=== PATIENT | male | born 1995 | race Caucasian/White ===

== ENCOUNTER 2016-03-23 16:55 | Emergency (ER) | payer OTHER ==
[~2016-03-23] VITALS: Ht 185.4 cm; Wt 90.0 kg
[2016-03-23 16:57] VITALS: BP 126/80; PULSE 114; RESP 20; TEMP 97.7; O2SAT 98
--- NOTE | 2016-03-23 18:27 | PD ---
HPI Chief Complaint: Medical Clearance Time Seen by Provider: 18:00 Travel History International Travel<30 days: No Contact w/Intl Traveler<30days: No Traveled to known affect area: No History of Present Illness HPI 20-year-old male presents to the emergency room for evaluation of nonproductive cough, congestion, sore throat, chills, headache that started yesterday and worsened severely today. Patient has been taking Mucinex and cough drops without significant relief. He called off work and is requesting a work note. Denies chronic medical conditions or daily medications. Girlfriend is sick with similar symptoms. [facility] Social History Tobacco Use: No Allergies-Medications (Allergen,Severity, Reaction): Coded Allergies: No Known Allergies (Unverified , 03/23/16) Reported Meds & Prescriptions Reported Meds & Active Scripts Active No Active Prescriptions or Reported Medications Review of Systems Except as stated in HPI: all other systems reviewed are Neg Physical Exam Narrative GENERAL: Well-nourished, well-developed male in no acute distress. Afebrile. Ambulatory. SKIN: Warm and dry. HEAD: Normocephalic. EYES: No scleral icterus. No injection or drainage. ENT: Mucosa pink and moist. Moderate erythema without edema or exudates. No uvular edema. No uvular, palatal, or tonsillar deviation. Airway patent. Nasal turbinates appear normal without nasal blood, purulent drainage or septal hematoma. EARS: Bilateral pinnae and external canals appear within normal limits. Bilateral tympanic membranes without erythema, dullness or perforation. NECK: Supple, trachea midline. No JVD or lymphadenopathy. CARDIOVASCULAR: Regular rate and rhythm without murmurs, gallops, or rubs. RESPIRATORY: Breath sounds equal bilaterally. No accessory muscle use. No crackles, rales, wheezes, or rhonchi. BACK: Nontender without obvious deformity. No CVA tenderness. Data Data Last Documented VS Vital Signs Date Time Temp Pulse Resp B/P Pulse Ox O2 Delivery O2 Flow Rate FiO2 03/23/16 18:38 98 16 98 Room Air 03/23/16 16:57 97.7 126/80 Orders Influenzae A/B Antigen (03/23/16 18:07) MDM Medical Decision Making Medical Screen Exam Complete: Yes Emergency Medical Condition: Yes Medical Record Reviewed: Yes Differential Diagnosis Influenza versus upper respiratory infection versus bronchitis Narrative Course 20 year old male presents to the emergency room for evaluation of a flulike symptoms since yesterday. He is afebrile well-appearing in the emergency room. Vital signs stable. Resting comfortably in bed. Physical exam reveals moderate erythema of the throat without exudates or edema. Lungs sounds clear and equal bilaterally. Rapid flu is negative. Patient discharged with instructions to follow up with a primary care physician or told to follow up return for worsening symptoms. He understands and agrees to plan. Diagnosis Primary Impression: Upper respiratory infection Qualified Code: J00 - Acute nasopharyngitis Referrals: Primary Care Physician Patient Instructions: General Instructions, Upper Respiratory Infection (ED) Departure Forms: Tests/Procedures, Work Release Enter return to work date: Mar 26, 2016 Additional Instructions: Rest and drink plenty of fluids. [id number] cough and cold medication for symptoms. Take ibuprofen with food as directed, as needed for pain. Follow-up with a primary care physician. Return to the emergency room for worsening symptoms. Scripts No Active Prescriptions or Reported Meds Disposition: 01 DISCHARGE HOME Condition: Stable Zofia Sim Mar 23, 2016 18:27
[2016-03-23 18:38] VITALS: PULSE 98; RESP 16; O2SAT 98
== END 2016-03-23 19:32 | disposition home or self-care (01) ==
LOC: NEPB 16:55
DX: J00 Acute nasopharyngitis [common cold] (principal)
CPT/HCPCS: 87804; 99283